=== PATIENT | male | born 1955 | race African-American/Black ===

== ENCOUNTER 2017-02-25 08:16 | Inpatient (IN) | payer OTHER ==
[2017-02-25] MEDS ORDERED: Lorazepam 2 MG/ML VIAL ONE ×2 (08:20→08:29)
[2017-02-25] MEDS ORDERED: levETIRAcetam In NaCl (Iso-Os) 1,000 MG in Premix Bag 1 BAG IVPB SCH ×2 (08:45)
[2017-02-25] MEDS ORDERED: Fosphenytoin Sodium 1,500 MG in Sodium Chloride 0.9% 100 ML IVPB SCH (08:45)
[2017-02-25 09:05] LABS: #Lymphocytes 0.5 thou/uL (1.20-3.40); #Monocytes 0.7 thou/uL (0.11-0.59); #Neutrophils 10.6 thou/uL (1.40-6.50); %Basophils 0.1 % (0.0-1.0); %Eosinophils 0.1 % (0.0-10.0); %Lymphocytes 4.5 % (21.0-51.0); Hematocrit 48.8 % (42.0-52.0); Mean Platelet Volume 6.5 fL (7.4-10.4); Red Blood Cell (RBC) Count 4.78 mill/uL (4.70-6.10); White Blood Cell (WBC) Count 11.9 thou/uL (4.8-10.8)
[2017-02-25 09:14] LABS: Bilirubin Negative (Negative); Blood, Urine Negative (Negative); Glucose, Urine (Dipstick) Negative (Negative); Ketone, Urine 15 mg/dL (Negative); Nitrite Positive (Negative); Protein, Urine (Dipstick) Trace mg/dL (Neg-Trace)
[2017-02-25 09:16] LABS: Bacteria/HPF 4+ HPF (None Seen); Hyaline Casts/LPF 0-3 HYALINE CAST LPF (0-3 Hyaline); RBC/HPF 0-3 HPF (0-3); Squamous Epithelial 0-3 HPF (0-3)
[2017-02-25 09:31] LABS: ALT (SGPT) 57 U/L (8-55); AST (SGOT) 59 U/L (5-34); Alkaline Phosphatase 79 U/L (40-150); Anion Gap 18 mmol/L (10-20); BUN (Urea Nitrogen) 6 mg/dL (8.4-25.7); Bilirubin, Total 0.5 mg/dL (0.2-1.2); Calc. Creatinine Clearance 0 mL/min (70-130); Calcium 8.4 mg/dL (7.8-10.44); Carbon Dioxide 19 mmol/L (23-31); Chloride 106 mmol/L (98-107); Dilantin 7.7 ug/mL (10.0-20.0); Estimated GFR-MDRD Greater than 90; Globulin 4.3 g/dL (2.4-3.5); Protein, Total 7.8 g/dL (5.8-8.1)
[2017-02-25 09:34] LABS: Amphetamine Not Detected (NotDetected); Methadone Not Detected (NotDetected); Methamphetamine Not Detected (NotDetected)
--- NOTE | 2017-02-25 10:14 | CT ---
CT OF BRAIN PERFORMED WITHOUT CONTRAST ENHANCEMENT: Date: 02/25/17 HISTORY: Altered mental status, seizures. COMPARISON: 04/26/14 exam. FINDINGS: There is generalized ventricular and sulcal prominence. Some asymmetric dilatation of the right later al ventricle as compared to the left, which is a stable finding. There is what appears to be an old a kathy of infarct in the right thalamus region. There are some associated volume loss changes and enceph alomalacia-type change in the right cerebral hemisphere with evidence of laminar necrosis. There are no signs of intracerebral hemorrhage or extra-axial fluid collections. The mastoid air cells and visu alized sinuses are clear. IMPRESSION: Encephalomalacia change in the right frontal region, stable as compared to the prior examination. No acute intracranial process. POS: [facility]
[2017-02-25 11:09] LABS: Lactic Acid - Sepsis 6.2 mmol/L (0.5-2.2)
--- NOTE | 2017-02-25 14:45 | PDOC.EVN ---
Attending Addendum - Attending Addendum I personally evaluated the patient and discussed the management with Dr. Nathan. I agree with the History, Examination, Assessment and Plan documented in his H& P with any addition or exceptions noted below. Patient with history of seizure disorder admitted today with apparent seizure episode that lasted around 45 minutes despite multiple doses of Ativan by EMS. His last seizure was greater than 1 year ago, suggesting an acute insult as cause of his seizure. His Dilantin level is low, he is positive for cannabinoids on UDS, and he has evidence of UTI on UA. He has been loaded with Dilantin and Keppra and admitted to stroke unit for further monitoring. Will will continue Rocephin and await culture results, trend WBC and monitor for fevers. Ativan as needed for seizure activity, and he will be made NPO until he is oriented enough to swallow safely. His lactate is elevated, likely 2/2 seizure activity, will repeat to ensure it has resolved. No neuro consult at this time unless patient continues to seize despite Keppra and Dilantin therapy. His Dilantin level was subtherapeutic and therefore we will alter his dose prior to discharge.
[2017-02-25] MEDS: Thiamine HCl 200 MG/2 ML VIAL IM SCH (15:30)
--- NOTE | 2017-02-25 17:23 | HP-2 ---
CODE STATUS: DNI. PRIMARY CARE PHYSICIAN: Ray Travis physician. ATTENDING PHYSICIAN: Gilbert Santiago MD RESIDENT: Davidson Nathan DO HISTORIAN: The patient's . SPECIALISTS: Dr. Leon, Cardiology. CHIEF COMPLAINT: Seizure. HISTORY OF PRESENT ILLNESS: A 61-year-old male who presented to the emergency room via EMS for seizure, the start of the seizure is unknown, he was witnessed ; however, he was found to be seizing by his in the morning approximately 15 minutes who immediately called EMS. Approximately 15 minutes after call, EMS arrived and proceeded to take the patient to the hospital. While en route, patient got 2 mg of Ativan IV and two more IM. At the time of her arrival at the emergency room, the patient stopped seizing, was postictal for approximately 1 minute and then began to seize again. The patient was given 2 more IM and IV of Ativan, was additionally given Keppra and Dilantin. Total amount of time, the patient's seized was approximately 45 minutes. While seizing the patient's pulse ox was in the mid to low 80s. Additionally, in the emergency room, the patient was diagnosed with UTI and was given 2 grams of Rocephin after urine cultures. PAST MEDICAL HISTORY: GERD, restless leg syndrome, polysubstance, previous CVA with a persistent left hemiplegia, atrial fibrillation, major depressive disorder, hypertension, BPH, seizure disorder secondary to CVA, coronary artery disease, alcohol abuse and NSTEMI. ALLERGIES: PENICILLIN. MEDICATIONS: Keppra 500 mg b.i.d., amlodipine 10 mg daily, metoprolol tartrate 12.5 mg b.i.d., amiodarone 200 mg daily, Dilantin is 75 mg b.i.d., aspirin 81 mg daily, atorvastatin 40 mg daily, lisinopril 10 mg daily, mirtazapine is 15 mg daily, calcium carbonate and ergocalciferol 600 mg 2 daily, tramadol 50 mg 1 every 3 days as needed for pain, omeprazole 20 mg daily. SOCIAL HISTORY: Tobacco 1 pack per day, 28-[id number]-[id number] history. Alcohol, six beers per day. Drugs: Marijuana. REVIEW OF SYSTEMS: Review of systems was completed by the patient's . The patient was unresponsive at home. GENERAL: Denies fever, chills, changes in appetite or weight. HEENT: Denies any eye pain changes, congestion, rhinorrhea. Complains of cough. RESPIRATORY: He denies shortness of breath. CARDIOVASCULAR: No chest pain or palpitations. GASTROINTESTINAL: Admits to nausea and vomiting x1 day. GENITOURINARY: Denies any incontinence. SKIN: Denies any rashes or lesions. MUSCULOSKELETAL: Denies any pain or tenderness. NEUROLOGICAL: Admits to old left-sided deficits. PSYCHIATRIC: Denies anxiety or depression. PHYSICAL EXAMINATION: VITAL SIGNS: Blood pressure 133/86, pulse 100, respiratory rate 22, T-max 99, pulse ox 100% on facemask, current weight is 70 kilograms. GENERAL: The patient is not alert or oriented. The patient is difficult to arouse and will only react to noxious stimuli such as sternal rub. HEENT: PERRLA. CARDIAC: Regular rate and rhythm without murmur. RESPIRATORY: Normal effort. CHEST: Clear to auscultation without retraction. SKIN: Warm and dry. ABDOMEN: Soft, nontender, bowel sounds in all 4 quadrants. EXTREMITIES: No cyanosis, clubbing or edema. MUSCULOSKELETAL: Unable to evaluate, this patient will not follow commands. The patient does have a known left upper and left lower extremity hemiplegia. NEUROLOGIC: At the time of evaluation, the patient's GCS is 7. LABORATORY DATA: CBC: Hemoglobin 16.3, hematocrit 48.8, white count 11.9, platelets 180. CMP: Sodium 139, potassium 3.5, chloride 106, bicarbonate 19, BUN 6, creatinine 0.3. Glucose 131, calcium 8.4, total serum protein 7.8, albumin 3.5, AST of 9, ALT 57, alkaline phosphatase 79, bilirubin 0.5. Prolactin 6.92, lactate 6.2. CK is 89. UA has specific gravity 1.015, blood 9 , protein trace, leukocyte trace, nitrites positive, ketones 15, glucose none, rbcs, 0-3 wbcs 7-10, bacteria 4+. UDS positive for barbiturates. Phenytoin 7.7 benzodiazepines positive for cannabinoids positive. CT head shows stable encephalomalacia. ASSESSMENT AND PLAN: 1. A 61-year-old mental status epilepticus is currently postictal and has a complicated urinary tract infection. 2. Status epilepticus. Continue the IV Keppra and Dilantin. At this dose of Dilantin to a previous dosing of 4 mL daily. Seizure precautions. Monitor for improvement as the patient becomes more responsive. We will look for focal neurological deficits at that time and reevaluated. The patient will be n.p.o. until the swallows be able to be evaluated. 3. Complicated urinary tract infection. Urine culture is pending. Continue Rocephin which has been started. The CBC and vitals to evaluate for pyelonephritis or a sepsis or bacteremia. 4. Hypertension. Continue on metoprolol, Norvasc, and lisinopril. 5. Coronary artery disease. Continue home statin. 6. Gastroesophageal reflux disease. Continue home omeprazole. 7. Alcohol abuse. [facility] protocol. HIV panel, syphilis, antibody negative, GC chlamydia. 8. Tobacco. Counseled cessation. 9. Elevated transaminases. Hepatitis panel as above. Outpatient workup. This is likely secondary to alcoholism. 10. Elevated white count, secondary to urinary tract infection. Antibiotics as above. Trend CBC. 11. Elevated lactate secondary to the urinary tract infection. Culture is pending. Antibiotics as above. 12. Elevated prolactin secondary to his seizure. 13. Subtherapeutic Dilantin level, loading dose was given in the emergency room. We will increase his maintenance dose. MTDD
[2017-02-25] MEDS ORDERED: Diazepam 5 MG TAB PO PRN (18:00)
[2017-02-25] MEDS: levETIRAcetam 500 mg/5 ml Oral Solution PO SCH (21:14)
[2017-02-25] MEDS: Atorvastatin Calcium 40 MG TAB PO SCH (21:14)
[2017-02-25] MEDS: Metoprolol Tartrate 25 MG TAB PO SCH (21:14)
[2017-02-25] MEDS: Mirtazapine 15 MG TAB PO SCH (21:15)
[2017-02-26] MEDS ORDERED: Diazepam 5 MG TAB PO PRN (04:00)
[2017-02-26 05:30] LABS: #Lymphocytes 1.4 thou/uL (1.20-3.40); #Monocytes 0.9 thou/uL (0.11-0.59); #Neutrophils 8.5 thou/uL (1.40-6.50); %Basophils 0.1 % (0.0-1.0); %Eosinophils 0.3 % (0.0-10.0); %Lymphocytes 12.6 % (21.0-51.0); %Monocytes 8.2 % (0.0-10.0); Hematocrit 45.6 % (42.0-52.0); Mean Platelet Volume 6.4 fL (7.4-10.4); Red Blood Cell (RBC) Count 4.43 mill/uL (4.70-6.10); White Blood Cell (WBC) Count 10.7 thou/uL (4.8-10.8)
[2017-02-26] MEDS ORDERED: Metoprolol Tartrate 5 MG/5 ML VIAL IVP PRN (06:51)
[2017-02-26] MEDS ORDERED: Metoprolol Tartrate 5 MG/5 ML VIAL IVP SCH (07:00)
[2017-02-26 08:50] LABS: ALT (SGPT) 49 U/L (8-55); AST (SGOT) 46 U/L (5-34); Alkaline Phosphatase 71 U/L (40-150); Anion Gap 10 mmol/L (10-20); BUN (Urea Nitrogen) 8 mg/dL (8.4-25.7); Bilirubin, Total 0.5 mg/dL (0.2-1.2); CK (CPK) 245 U/L (30-200); Calc. Creatinine Clearance 104 mL/min (70-130); Calcium 8.8 mg/dL (7.8-10.44); Carbon Dioxide 31 mmol/L (23-31); Chloride 101 mmol/L (98-107); Estimated GFR-MDRD Greater than 90; Globulin 4.4 g/dL (2.4-3.5); Protein, Total 7.7 g/dL (5.8-8.1)
--- NOTE | 2017-02-26 08:50 | PDOC.FM ---
- Subjective Subjective: Atrial flutter events on tele at 0630 this morning. Pt given metoprolol 5mg IV with resolution of flutter and decrease in HR to 70. Pt alert and oriented x 3 this morning. Sedated but GCS of 14. No complaints. - Objective MAR Reviewed: Yes Vital Signs & Weight: Vital Signs (12 hours) Temp Pulse Resp BP Pulse Ox 02/26/17 08:20 98.5 F 80 20 155/95 H 99 02/26/17 07:35 98.7 F 81 16 02/26/17 03:32 98.7 F 81 16 129/79 100 02/25/17 23:55 99.6 F 92 20 129/84 100 02/25/17 21:11 100.3 F H 83 18 100 Weight Weight 75.705 kg I&O: 02/25/17 02/26/17 02/27/17 06:59 06:59 06:59 Intake Total 0 Output Total 0 Balance -2109 Result Diagrams: 02/26/17 04:59 02/25/17 08:46 <Hayde Barclay - Last Filed: 02/26/17 08:49> - Objective Vital Signs & Weight: Vital Signs (12 hours) Temp Pulse Pulse Pulse Resp BP BP 02/26/17 19:39 98.9 F 75 16 02/26/17 16:21 99.5 F 85 20 02/26/17 11:43 99.3 F 81 24 H 02/26/17 11:12 82 77 136/89 149/88 H 02/26/17 10:12 80 02/26/17 09:27 77 02/26/17 08:20 98.5 F 80 20 BP Pulse Ox 02/26/17 19:39 140/88 96 02/26/17 16:21 134/85 93 L 02/26/17 11:43 136/89 92 L 02/26/17 11:12 02/26/17 10:12 02/26/17 09:27 02/26/17 08:20 155/95 H 99 Weight Weight 75.705 kg I&O: 02/25/17 02/26/17 02/27/17 06:59 06:59 06:59 Intake Total 0 1200 Output Total 0 1100 Balance -2109 100 Result Diagrams: 02/26/17 04:59 02/26/17 08:21 <Meron Maurer - Last Filed: 02/26/17 19:53> Phys Exam - Physical Examination Constitutional: NAD HEENT: PERRLA, moist MMs Neck: no JVD Respiratory: no wheezing, no rales, no rhonchi, clear to auscultation bilateral Cardiovascular: RRR, no significant murmur Gastrointestinal: soft, non-tender, no distention, positive bowel sounds Musculoskeletal: no edema, pulses present left hemiparesis of upper and lower extremity Psychiatric: A&O x 3 Deviation from normal: sedated but alert and oriented X3 and GCS14 Skin: no rash, normal turgor, cap refill <2 seconds <Hayde Barclay - Last Filed: 02/26/17 08:49> Dx/Plan (1) Status epilepticus Code(s): G40.901 - EPILEPSY, UNSP, NOT INTRACTABLE, WITH STATUS EPILEPTICUS Status: Acute (2) Generalized seizure disorder Code(s): G40.309 - GEN IDIOPATHIC EPILEPSY, NOT INTRACTABLE, W/O STAT EPI Status: Acute (3) Bacteremia due to Gram-positive bacteria Code(s): R78.81 - BACTEREMIA Status: Acute (4) Atrial flutter Code(s): I48.92 - UNSPECIFIED ATRIAL FLUTTER Status: Acute (5) UTI (urinary tract infection), uncomplicated Code(s): N39.0 - URINARY TRACT INFECTION, SITE NOT SPECIFIED Status: Acute (6) 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 1.) Status epilepticus, controlled and resolved on IV keppra and dilantin. Pt takes PO Keppra and Dilantin at home Will have nursing do a dysphagia bedside screen to evaluate if pt can tolerate PO meds. Will start to wean IV keppra and dilantin once 24 hour seizure free Consider increasing PO Keppra 2.)Seizure d/o, controlled on IV Keppra and Dilantin -Will attempt to wean off IV today and restart home meds PO Keppra and Dilantin 3.)Atrial flutter- Flutter on tele at 0630 this morning with HR in the 110s Given IV metoprolol 5mg prn, one time dose, with resolution of flutter and rate down to 70s, will monitor today with prn meds Will restart home meds once cleared with dysphagia screen 4.)Hx of CVA, 2009 Continue atorvastatin 5.)Bacteremia with gram + cocci in clusters (1/2 cultures positive) -Start IV Vanc 15mg/kg q8hr for empiric treatment 6.)UTI, uncomplicated- Rocephin 1g daily 7.) HLD, controlled Atorvastatin 40mg daily 8.)HTN, controlled Amlodipine 10mg daily Lisinopril 10mg daily 9.) Dispo: Pt still on IV medications for seizure prophylaxis; will attempt to wean over the next 24 hours and restart home meds <Hayde Barclay - Last Filed: 02/26/17 08:49> Attending Addendum - Attending Addendum I personally evaluated the patient and discussed the management with Dr. Correia. I agree with the History, Examination, Assessment and Plan documented above with any addition or exceptions noted below. The patient is still very somnolent from the seizures and seizure medications. Unsure of cause of seizures, may be due to infection, he also has a history of alcohol abuse but he is not able to tell us how much alcohol he drinks or if he has stopped drinking. Pt also had barbituates in uds but to our knowledge is not on a barbituate. ASE protocol will be followed. Pt will need swallow study. Pt on antibiotics for uti. Continue IV dilantin adn keppra as patient is not safe to swallow. <Meron Maurer - Last Filed: 02/26/17 19:53>
[2017-02-26] MEDS ORDERED: Vancomycin HCl 1 GM in Sodium Chloride 0.9% 250 ML 250 ML IVPB SCH ×4 (09:00)
[2017-02-26] MEDS ORDERED: Vancomycin HCl 1 GM in Premix Bag 1 BAG IVPB SCH (09:00)
[2017-02-26] MEDS ORDERED: cefTRIAXone\\ROCEPHIN 1 GM in Sodium Chloride 0.9% 100 ML IVPB SCH (10:00)
[2017-02-26] MEDS: Folic Acid 1 MG TAB PO SCH (10:12)
[2017-02-26] MEDS: Magnesium Oxide 400 MG TAB PO SCH (10:12)
[2017-02-26] MEDS: levETIRAcetam 500 mg/5 ml Oral Solution PO SCH (10:12)
[2017-02-26] MEDS: Amlodipine 10 MG TAB PO SCH (10:12)
[2017-02-26] MEDS: Lisinopril 10 MG TAB PO SCH (10:12)
[2017-02-26] MEDS: Metoprolol Tartrate 25 MG TAB PO SCH (10:13)
[2017-02-26] MEDS: Multivitamin W/ Minerals 1 TAB PO SCH (10:13)
[2017-02-26] MEDS: Fosphenytoin Sodium 100 MG in Sodium Chloride 0.9% 100 ML IVPB SCH ×2 (10:51→17:49)
[2017-02-26] MEDS ORDERED: Lorazepam 2 MG/ML VIAL SLOW IVP PRN (12:53)
--- NOTE | 2017-02-26 13:39 | PQF ---
DATE: 02-26-17 ATTN: DR. YELITZA ELAINE Please exercise your independent, professional judgment in responding to the clarification form. Clinical indicators are provided on the bottom of this form for your review Please check appropriate box(s): [ ] Sepsis due to UTI [ ] SIRS due to non-infectious process (please specify etiology) [ ] Localized infection without sepsis [ X ] Other diagnosis ___no sepsis, elevated wbc and lactate d/t status epilepticus; pt does have an uncomplicated UTI being treated on Rocephin [ ] Unable to determine In addition, please specify: Present on Admission (POA): [ ] Yes [ ] No [ ] Unable to determine For continuity of documentation, please document condition throughout progress notes and discharge summary. Thank You. CLINICAL INDICATORS - SIGNS / SYMPTOMS / LABS ER DOCUMENTATION: PULSE: 117, 111, 100, 98, SAT: 91% ON RA, THEN FACEMASK, RR: 28, 30, 22, 21 TEMP: 02-25-17: 100.3 LACTIC ACID: 02-25-17: 6.2 WBC: 02-25-17: 11.9 H&P: STATUS EPILEPTICUS, COMPLICATED UTI PN DR. YELITZA ELAINE 02-26-17: ACUTE BACTEREMIA DUE TO GRAM POSITIVE BACTEREMIA RISK FACTORS: H&P: STATUS EPILEPTICUS, COMPLICATED UTI PN DR. YELITZA ELAINE 02-26-17: ACUTE BACTEREMIA DUE TO GRAM POSITIVE BACTEREMIA TREATMENTS: (02-26-17) ROCEPHIN, (02-26-17) VANCOMYCIN (This form is maintained as a part of the permanent medical record) 2014 [employer] All Rights Reserved [email or web address] [email or web address] Office: [phone] [facility]
[2017-02-26] MEDS ORDERED: Diazepam 5 MG TAB PO SCH (14:15)
[2017-02-26] MEDS: Sodium Chloride 0.9% 1,000 ML IV SCH ×2 (14:26→21:05)
[2017-02-26] MEDS: Multivitamins, Adult 10 ML, Folic Acid 1 MG, Thiamine HCl 100 MG in Dextrose 5 %-0.45 %... IV SCH ×4 (15:07)
[2017-02-26] MEDS ORDERED: Acetaminophen 650 MG in Premix Bag 1 BAG IVPB PRN (16:59)
[2017-02-26] MEDS: Metoprolol Tartrate 5 MG/5 ML VIAL IVP SCH ×2 (17:49→23:52)
[2017-02-26] MEDS: Enoxaparin Sodium 40 MG/0.4 ML SYRINGE SC SCH (21:01)
[2017-02-27] MEDS: Fosphenytoin Sodium 100 MG in Sodium Chloride 0.9% 100 ML IVPB SCH ×2 (02:25→09:35)
[2017-02-27] MEDS: Metoprolol Tartrate 5 MG/5 ML VIAL IVP SCH (05:13)
[2017-02-27] MEDS: Sodium Chloride 0.9% 1,000 ML IV SCH ×3 (05:14→18:30)
--- NOTE | 2017-02-27 06:21 | PDOC.FM ---
- Subjective Subjective: More alert this morning. GCS 15. Responsive to questions. No complaints. - Objective MAR Reviewed: Yes Vital Signs & Weight: Vital Signs (12 hours) Temp Pulse Resp BP Pulse Ox 02/27/17 05:12 77 119/61 02/27/17 03:50 99.3 F 80 16 147/90 H 97 02/26/17 23:57 99.0 F 70 16 118/73 97 02/26/17 23:54 70 118/73 02/26/17 20:50 98.9 F 75 16 96 02/26/17 19:39 98.9 F 75 16 140/88 96 Weight Weight 75.705 kg I&O: 02/25/17 02/26/17 02/27/17 06:59 06:59 06:59 Intake Total 0 3756 Output Total 2110 2850 Balance -2110 906 Result Diagrams: 02/27/17 07:45 02/27/17 07:45 <Hayde Barclay - Last Filed: 02/27/17 13:35> - Objective Vital Signs & Weight: Vital Signs (12 hours) Temp Pulse Pulse Pulse Resp BP BP 02/28/17 12:00 146/84 H 02/28/17 11:25 99.5 F 75 18 02/28/17 08:38 74 69 144/71 H 02/28/17 08:12 68 153/87 H 02/28/17 08:00 99.5 F 75 18 153/87 H 02/28/17 07:18 98.9 F 68 18 BP BP Pulse Ox 02/28/17 12:00 02/28/17 11:25 146/84 H 98 02/28/17 08:38 163/88 H 02/28/17 08:12 02/28/17 08:00 02/28/17 07:18 153/87 H 97 Weight Weight 70.987 kg I&O: 02/27/17 02/28/17 03/01/17 06:59 06:59 06:59 Intake Total 3756 3737 120 Output Total 2850 3475 Balance 906 262 120 Result Diagrams: 02/28/17 07:04 02/28/17 13:20 <Meron Maurer - Last Filed: 02/28/17 19:02> Phys Exam - Physical Examination Constitutional: NAD HEENT: PERRLA, moist MMs Respiratory: no wheezing, no rales, no rhonchi, clear to auscultation bilateral Cardiovascular: RRR, no significant murmur Gastrointestinal: soft, non-tender, no distention Musculoskeletal: no edema, pulses present left hemiparesis Psychiatric: A&O x 3 Skin: no rash, cap refill <2 seconds <Hayde Barclay - Last Filed: 02/27/17 13:35> Dx/Plan (1) Status epilepticus Code(s): G40.901 - EPILEPSY, UNSP, NOT INTRACTABLE, WITH STATUS EPILEPTICUS Status: Acute (2) Generalized seizure disorder Code(s): G40.309 - GEN IDIOPATHIC EPILEPSY, NOT INTRACTABLE, W/O STAT EPI Status: Acute (3) Atrial flutter Code(s): I48.92 - UNSPECIFIED ATRIAL FLUTTER Status: Acute (4) UTI (urinary tract infection), uncomplicated Code(s): N39.0 - URINARY TRACT INFECTION, SITE NOT SPECIFIED Status: Acute (5) 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 1.) Status epilepticus, controlled and resolved on IV keppra and dilantin; Pt without tremulousness and sedated but not confused. alert and oriented X 3 Pt takes PO Keppra and Dilantin at home Will have nursing do a dysphagia bedside screen to evaluate if pt can tolerate PO meds. If cleared for liquids, will order oral suspension of keppra and dilantin if pt is unable to swallow pill form. Consider increasing PO Keppra. 2.)Seizure d/o, controlled on IV Keppra and Dilantin -Will attempt to wean off IV today and restart home meds PO Keppra and Dilantin 3.)Atrial flutter, resolved on IV metoprolol q6hr If passes dysphagia screen will transition to PO metoprolol 4.)Hx of CVA, 2010 Continue atorvastatin 40mg daily 5.)Positive blood culture for staph epidermidis -dc vanc 6.)UTI, uncomplicated- Rocephin 1g daily Sensitive to 3rd generation cephalosporins and ciprofloxacin. Will transition to nitrofurantoin once tolerating PO meds. 7.) HLD, controlled Atorvastatin 40mg daily Once tolerating PO and ambulating, pt can be discharged with . <Hayde Barclay - Last Filed: 02/27/17 13:35> Attending Addendum - Attending Addendum I personally evaluated the patient and discussed the management with Dr. Correia on 02/27/17. I agree with the History, Examination, Assessment and Plan documented above with any addition or exceptions noted below. The patient is more alert today. He has been seen by speech therapy who has cleared him for mechanical soft diet with ground meats and thin liquids. Will transition to PO seizure meds and beta edward. Will work with PT and plan for discharge in next 1-2 days. <Meron Maurer - Last Filed: 02/28/17 19:02>
[2017-02-27 08:30] LABS: #Eosinphils 0.1 thou/uL (0.0-0.7); #Lymphocytes 1.3 thou/uL (1.20-3.40); #Monocytes 0.7 thou/uL (0.11-0.59); #Neutrophils 3.9 thou/uL (1.40-6.50); %Basophils 0.7 % (0.0-1.0); %Eosinophils 0.9 % (0.0-10.0); %Lymphocytes 22.1 % (21.0-51.0); %Monocytes 11.9 % (0.0-10.0); Hematocrit 42.5 % (42.0-52.0); Mean Platelet Volume 6.5 fL (7.4-10.4); Red Blood Cell (RBC) Count 4.13 mill/uL (4.70-6.10)
--- NOTE | 2017-02-27 08:44 | RAD ---
UPRIGHT PORTABLE CHEST ONE VIEW: History: 61-year-old male with cough status post epilepticus. Comparison: 03-26-15 FINDINGS: Monitor leads overlie the chest. Heart size is within normal limits. The lungs are clear. IMPRESSION: No acute intrathoracic disease. No evidence of pneumonia, edema, or other acute process. POS: [facility]
[2017-02-27 08:47] LABS: ALT (SGPT) 39 U/L (8-55); AST (SGOT) 44 U/L (5-34); Alkaline Phosphatase 60 U/L (40-150); Anion Gap 10 mmol/L (10-20); BUN (Urea Nitrogen) 4 mg/dL (8.4-25.7); Bilirubin, Total 0.6 mg/dL (0.2-1.2); Calc. Creatinine Clearance 122 mL/min (70-130); Carbon Dioxide 28 mmol/L (23-31); Chloride 104 mmol/L (98-107); Estimated GFR-MDRD Greater than 90; Globulin 3.8 g/dL (2.4-3.5); Protein, Total 6.9 g/dL (5.8-8.1)
[2017-02-27] MEDS ORDERED: cefTRIAXone\\ROCEPHIN 1 GM, Syringe 0.4 ML in Sterile Water 9.6 ML SLOW IVP SCH ×2 (10:30→11:00)
[2017-02-27] MEDS: Multivitamins, Adult 10 ML, Folic Acid 1 MG, Thiamine HCl 100 MG in Dextrose 5 %-0.45 %... IV SCH ×4 (13:55)
[2017-02-27] MEDS: Thiamine HCl 200 MG/2 ML VIAL IM SCH (13:56)
[2017-02-27] MEDS: levETIRAcetam 500 mg/5 ml Oral Solution PO SCH (21:37)
[2017-02-27] MEDS: Metoprolol Tartrate 25 MG TAB PO SCH (21:38)
[2017-02-27] MEDS: Enoxaparin Sodium 40 MG/0.4 ML SYRINGE SC SCH (21:39)
[2017-02-27] MEDS: Atorvastatin Calcium 40 MG TAB PO SCH (21:39)
[2017-02-27] MEDS: Mirtazapine 15 MG TAB PO SCH (21:39)
[2017-02-27] MEDS: Phenytoin 50 MG Chewable Tablet PO SCH (21:47)
[2017-02-27] MEDS ORDERED: Melatonin 3 MG TAB PO PRN (23:36)
[2017-02-28] MEDS: Sodium Chloride 0.9% 1,000 ML IV SCH ×2 (03:08→11:02)
[2017-02-28 07:29] LABS: Hematocrit 45.6 % (42.0-52.0); Mean Platelet Volume 6.4 fL (7.4-10.4); Red Blood Cell (RBC) Count 4.43 mill/uL (4.70-6.10); White Blood Cell (WBC) Count 4.9 thou/uL (4.8-10.8)
[2017-02-28 07:49] LABS: Anion Gap 14 mmol/L (10-20); BUN (Urea Nitrogen) Less than 4 mg/dL (8.4-25.7); CK (CPK) 354 U/L (30-200); Calc. Creatinine Clearance 124 mL/min (70-130); Calcium 8.4 mg/dL (7.8-10.44); Carbon Dioxide 23 mmol/L (23-31); Chloride 106 mmol/L (98-107); Estimated GFR-MDRD Greater than 90
[2017-02-28 07:54] LABS: Band 1 % (5-11); Macrocytosis SLIGHT = 6-15 cells (100X) (0-5/hpf); Neutrophil 68 % (42-75); Reactive Lymphocytes 4 % (0-10)
[2017-02-28] MEDS: levETIRAcetam 500 mg/5 ml Oral Solution PO SCH (08:10)
[2017-02-28] MEDS: Magnesium Oxide 400 MG TAB PO SCH (08:11)
[2017-02-28] MEDS: Multivitamin W/ Minerals 1 TAB PO SCH (08:11)
[2017-02-28] MEDS: Metoprolol Tartrate 25 MG TAB PO SCH (08:11)
[2017-02-28] MEDS: Folic Acid 1 MG TAB PO SCH (08:11)
[2017-02-28] MEDS: Amlodipine 10 MG TAB PO SCH (08:12)
[2017-02-28] MEDS: Lisinopril 10 MG TAB PO SCH (08:12)
[2017-02-28] MEDS: Phenytoin 50 MG Chewable Tablet PO SCH (08:13)
[2017-02-28] MEDS ORDERED: Potassium Chloride 20 MEQ TAB PO SCH (08:30)
[2017-02-28] MEDS ORDERED: cefTRIAXone\\ROCEPHIN 1 GM, Syringe 0.4 ML in Sterile Water 9.6 ML SLOW IVP SCH (10:00)
[2017-02-28 11:46] VITALS: TEMP 99.5
[2017-02-28] MEDS: Multivitamins, Adult 10 ML, Folic Acid 1 MG, Thiamine HCl 100 MG in Dextrose 5 %-0.45 %... IV SCH ×4 (12:01)
[2017-02-28] MEDS: Thiamine HCl 200 MG/2 ML VIAL IM SCH (12:01)
--- NOTE | 2017-02-28 12:13 | PDOC.FM ---
- Subjective Subjective: No acute events overnight. Pt states he feels better. Is tolerating a soft mechanical diet and is able to swallow his medications. - Objective MAR Reviewed: Yes Vital Signs & Weight: Vital Signs (12 hours) Temp Pulse Resp BP BP Pulse Ox 02/28/17 11:25 99.5 F 75 18 146/84 H 98 02/28/17 08:12 68 153/87 H 02/28/17 08:00 153/87 H 02/28/17 07:18 98.9 F 68 18 153/87 H 97 02/28/17 03:45 129/83 02/28/17 03:38 98.8 F 68 20 129/83 97 Weight Weight 70.987 kg I&O: 02/27/17 02/28/17 03/01/17 06:59 06:59 06:59 Intake Total 3758 3737 120 Output Total 2850 3475 Balance 906 262 120 Result Diagrams: 02/28/17 07:04 02/28/17 07:04 <Hayde Barclay - Last Filed: 02/28/17 12:22> - Objective Vital Signs & Weight: Vital Signs (12 hours) Temp Pulse Pulse Pulse Resp BP BP 02/28/17 12:00 146/84 H 02/28/17 11:25 99.5 F 75 18 02/28/17 08:38 74 69 144/71 H 02/28/17 08:12 68 153/87 H 02/28/17 08:00 99.5 F 75 18 153/87 H BP BP Pulse Ox 02/28/17 12:00 02/28/17 11:25 146/84 H 98 02/28/17 08:38 163/88 H 02/28/17 08:12 02/28/17 08:00 Weight Weight 70.987 kg I&O: 02/27/17 02/28/17 03/01/17 06:59 06:59 06:59 Intake Total 1626 3737 120 Output Total 2850 3475 Balance 906 262 120 Result Diagrams: 02/28/17 07:04 02/28/17 13:20 <Meron Maurer - Last Filed: 02/28/17 19:27> Phys Exam - Physical Examination HEENT: moist MMs, sclera anicteric Neck: no JVD Respiratory: no wheezing, no rales, clear to auscultation bilateral Cardiovascular: RRR, no significant murmur Gastrointestinal: soft, non-tender, no distention, positive bowel sounds Musculoskeletal: no edema, pulses present Neurological: non-focal Psychiatric: normal affect, A&O x 3 Skin: no rash <Hayde Barclay - Last Filed: 02/28/17 12:22> Dx/Plan (1) Status epilepticus Code(s): G40.901 - EPILEPSY, UNSP, NOT INTRACTABLE, WITH STATUS EPILEPTICUS Status: Resolved (2) Generalized seizure disorder Code(s): G40.309 - GEN IDIOPATHIC EPILEPSY, NOT INTRACTABLE, W/O STAT EPI Status: Chronic (3) Atrial flutter Code(s): I48.92 - UNSPECIFIED ATRIAL FLUTTER Status: Resolved (4) UTI (urinary tract infection), uncomplicated Code(s): N39.0 - URINARY TRACT INFECTION, SITE NOT SPECIFIED Status: Acute (5) 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 1.) Status epilepticus, resolved on home meds PO keppra and dilantin; -Pt currently on home dose levels of PO Keppra and Dilantin and is alert and oriented X3, conversive, and back to baseline 2.)Seizure d/o, controlled on PO Keppra and Dilantin -see above 3.)Atrial flutter, resolved -On metoprolol PO 4.)Hx of CVA, 2009 -Continue atorvastatin 40mg daily 6.)UTI, uncomplicated- Rocephin 1g daily Sensitive to 3rd generation cephalosporins and ciprofloxacin. Will transition to nitrofurantoin upon dc. 7.) HLD, controlled Atorvastatin 40mg daily Plan for discharge today. <Hayde Barclay - Last Filed: 02/28/17 12:22> Attending Addendum - Attending Addendum I personally evaluated the patient and discussed the management with Dr. Correia. I agree with the History, Examination, Assessment and Plan documented above with any addition or exceptions noted below. The patient has remained seizure free. He wants to go home and is stable for discharge. No more atrial flutter. <Meron Maurer - Last Filed: 02/28/17 19:27>
[2017-02-28 12:33] VITALS: BP 144/71
[2017-02-28 13:16] LABS: Hep C PCR-Quant 1590000 IU/mL (.)
== END 2017-02-28 14:52 | disposition home health service (06) | DRG 689 ==
LOC: ERS 08:16 → 2SE 13:31
PROVIDERS: ADMIT Student in an Organized Health Care Education/Training Program; ATTEND Student in an Organized Health Care Education/Training Program
DX: N39.0 Urinary tract infection, site not specified (principal); G40.301 Generalized idiopathic epilepsy and epileptic syndromes, not intractable, with status epilepticus; I48.92 Unspecified atrial flutter; I69.354 Hemiplegia and hemiparesis following cerebral infarction affecting left non-dominant side; G25.81 Restless legs syndrome; I48.91 Unspecified atrial fibrillation; I10 Essential (primary) hypertension; K21.9 Gastro-esophageal reflux disease without esophagitis; F32.9 Major depressive disorder, single episode, unspecified; N40.0 Benign prostatic hyperplasia without lower urinary tract symptoms; I25.10 Atherosclerotic heart disease of native coronary artery without angina pectoris; Z88.0 Allergy status to penicillin; I25.2 Old myocardial infarction; F17.210 Nicotine dependence, cigarettes, uncomplicated; F10.10 Alcohol abuse, uncomplicated; F19.10 Other psychoactive substance abuse, uncomplicated; E78.5 Hyperlipidemia, unspecified
CPT/HCPCS: 36415; 51702; 70450; 71010; 80048; 80053; 80185; 80306; 81003; 81015; 82550; 82607; 82746; 83605; 84146; 85025; 86704; 86705; 86706; 86708; 86780; 86803; 87040; 87077; 87086; 87149; 87186; 87340; 87389; 87491; 87522; 87591; 93005; 94760; 96365; 96367; 96375; A4216; G8978-GP-CM; G8979-GP-CL; G8987-GO-CM; G8988-GO-CJ; G8996-GN-CK; G8996-GN-CL; G8997-GN-CI; J0696; J1650; J1953; J2060; J3370; J3411; J3475; J7042; J7050; Q2009

== ENCOUNTER 2018-03-01 09:35 | Emergency (ER) | payer OTHER ==
--- NOTE | 2018-03-01 12:53 | RAD ---
LEFT HIP 2 VIEWS: HISTORY: Left hip pain. FINDINGS: Prior internal fixation of the left femoral neck. No acute fracture identified. Degenerative change s of the hip joint. IMPRESSION: Degenerative change present. No acute process. POS: [facility]
--- NOTE | 2018-03-01 12:53 | RAD ---
AP PELVIS: HISTORY: Left leg pain. FINDINGS: There has been prior internal fixation of a left femoral neck fracture with intramedullary bettye and co mpression screw. No acute fracture of the pelvis identified. Degenerative changes of the right hip. POS: [facility]
== END 2018-03-01 15:10 | disposition home or self-care (01) ==
LOC: ERS 09:35
DX: M19.071 Primary osteoarthritis, right ankle and foot (principal); I69.969 Other paralytic syndrome following unspecified cerebrovascular disease affecting unspecified side; I25.2 Old myocardial infarction; I10 Essential (primary) hypertension; F32.9 Major depressive disorder, single episode, unspecified; F17.210 Nicotine dependence, cigarettes, uncomplicated; Z79.899 Other long term (current) drug therapy
CPT/HCPCS: 72170

== ENCOUNTER 2022-11-13 14:28 | Outpatient (CLI) | payer OTHER | END 2022-11-13 14:29 | disposition home or self-care (01) | LOC: BICCT 14:28 | PROVIDERS: ATTEND Student in an Organized Health Care Education/Training Program | DX: Z12.2 Encounter for screening for malignant neoplasm of respiratory organs (principal); F17.210 Nicotine dependence, cigarettes, uncomplicated | CPT/HCPCS: 71271 ==

== ENCOUNTER 2024-04-22 20:14 | Emergency (ER) | payer OTHER, MEDICAID ==
[2024-04-22 21:20] LABS: #Basophils 0.03 10x3/uL (0.0-0.2); %Basophils 0.5 % (0.0-1.0); %Eosinophils 2.4 % (0.0-10.0); %Lymphocytes 24.4 % (21.0-51.0); %Monocytes 16.6 % (0.0-10.0); %Neutrophils 55.6 % (42.0-75.0); Hematocrit 44.3 % (42.0-52.0); Hemoglobin 15.3 g/dL (14.0-18.0); Mean Corpuscular HGB CONC 34.5 g/dL (32.0-36.0); Mean Corpuscular Hemoglobin 32.5 pg (27.0-31.0); Mean Corpuscular Volume 94.1 fL (78.0-98.0); Mean Platelet Volume 8.7 fL (7.4-10.4); Platelet Count 134 10x3/uL (130-400); RBC Distribution Width 12.7 % (11.5-14.5); Red Blood Cell (RBC) Count 4.71 mill/uL (4.70-6.10)
[2024-04-22 21:39] LABS: ALT (SGPT) 38 U/L (8-55); AST (SGOT) 49 U/L (5-34); Albumin 2.9 g/dL (3.4-4.8); Alkaline Phosphatase 54 U/L (40-110); Anion Gap 15 mmol/L (10-20); BUN (Urea Nitrogen) 7 mg/dL (8.4-25.7); Bilirubin, Total 0.3 mg/dL (0.2-1.2); Calc. Creatinine Clearance 0 mL/min (70-130); Calcium 8.1 mg/dL (7.8-10.44); Carbon Dioxide 17 mmol/L (23-31); Chloride 106 mmol/L (98-107); Estimated GFR 76; Globulin 4.2 g/dL (2.4-3.5); Glucose 82 mg/dL (80-115); Magnesium 1.9 mg/dL (1.6-2.6); Potassium 3.7 mmol/L (3.5-5.1); Protein, Total 7.1 g/dL (5.8-8.1); Sodium 134 mmol/L (136-145)
[2024-04-22 21:46] LABS: Troponin I Less than 0.010 ng/mL (< 0.028)
== END 2024-04-22 23:00 | disposition home or self-care (01) ==
LOC: ERS 20:14
DX: I95.9 Hypotension, unspecified (principal); I10 Essential (primary) hypertension; I25.2 Old myocardial infarction; F17.210 Nicotine dependence, cigarettes, uncomplicated; Z86.73 Personal history of transient ischemic attack (TIA), and cerebral infarction without residual deficits
CPT/HCPCS: 36415; 71045; 80053; 83735; 83880; 84484; 85025; 93005